=== PATIENT | female | born 2000 | race Caucasian/White ===

== ENCOUNTER 2024-09-16 09:29 | Emergency (ER) | payer MEDICAID ==
[~2024-09-16] VITALS: Ht 162.6 cm; Wt 90.7 kg
[2024-09-16 09:57] VITALS: O2SAT 95
[2024-09-16 10:08] LABS: BASOPHILS % 0.1 % (0.0-2.0); EOSINOPHILS % 13.9 % (0.0-5.0); HEMATOCRIT. 36.9 % (36.0-48.0); HEMOGLOBIN. 12.3 g/dL (12.0-16.0); LYMPHOCYTES % 12.7 % (20.0-50.0); MEAN CORPUSCULAR HEMOGLOBIN 28.5 pg (28.0-32.0); MEAN CORPUSCULAR HGB CONC 33.4 g/dL (31.0-37.0); MEAN CORPUSCULAR VOLUME 85.3 fL (81.0-99.0); MEAN PLATELET VOLUME 9.3 fl (7.4-10.4); MONOCYTES % 5.5 % (2.0-8.0); NEUTROPHILS % 67.8 % (40.0-76.0); PLATELET 231 x1000/uL (130-400); RED BLOOD CELL COUNT 4.32 mill/uL (4.2-5.4); RED CELL DISTRIBUTION WIDTH 14.4 % (11.6-14.6); WHITE BLOOD COUNT 15.9 x1000/uL (4.5-11.0)
[2024-09-16 10:24] LABS: CHLORIDE 106 mEq/L (98-107); POTASSIUM 3.6 mEq/L (3.5-5.1); SODIUM 134 mEq/L (136-145)
[2024-09-16 10:25] LABS: CALCIUM 9.1 mg/dL (8.7-10.4); CARBON DIOXIDE 18 mEq/L (21-32)
[2024-09-16 10:30] LABS: CREATININE 0.6 mg/dL (0.6-1.0); GLUCOSE 111 mg/dL (70-105); UREA NITROGEN BLOOD 9 mg/dL (9-23)
[2024-09-16 10:32] LABS: ALANINE AMINOTRANSFERASE 44 IU/L (10-49); ALBUMIN 4.2 g/dL (3.2-4.8); ASPARTATE AMINOTRANSFERASE 35 IU/L (<34); PROTEIN TOTAL 7.3 g/dL (6.0-8.3)
[2024-09-16 10:33] LABS: BILIRUBIN TOTAL 0.6 mg/dL (0.1-1.0)
[2024-09-16 11:18] VITALS: BP 139/96; PULSE 80; RESP 16; TEMP 36.7; O2SAT 98
== END 2024-09-16 11:33 | disposition short-term general hospital (02) ==
LOC: ER 09:29
DX: O26.893 Other specified pregnancy related conditions, third trimester (principal); N85.8 Other specified noninflammatory disorders of uterus; Z3A.40 40 weeks gestation of pregnancy
CPT/HCPCS: 36415; 76805; 80053; 85025; 86592; 86705; 86850; 86900; 99291